=== PATIENT | male | born 1960 | race African-American/Black ===

== ENCOUNTER 2020-09-27 18:28 | Inpatient (IN) | payer MEDICARE ==
[~2020-09-27] VITALS: Ht 165.1 cm; Wt 71.4 kg
--- NOTE | ~2020-09-27 | HEMODYNAMI ---
PATIENT:ARMANDO ZAVALA MEDICAL RECORD: [id number] : 64 LOCATION:[place] [address] ADMISSION DATE: 09/27/20 Generatedon:113:02 Patient name: ARMANDO ZAVALA Patient #: [id number] SSN: : 1960 Date of study: 10/01/2020 Page: Of Hemodynamic Procedure Report Patient Data Patient Demographics Procedure consent was obtained First Name: ARMANDO Gender: Male Last Name: LUCAS : 1960 Patient #: [id number] Age: 59 year(s) Race: Black Additional ID: [id number] Contact details [address]: [address] [place] [address] State: [place] City: [place] Zip code: [address] Past Medical History Allergies: No known allergies Admission Admission Data Admission Date: 09/27/2020 Admission Time: 18:28 Room #: [facility] Height (in.): 65 BSA: 1.71 (m2) Height (cm.): 165.1 BMI: 23.63 (kg/m2) Weight (lbs.): 142 Weight (kg.): 64.41 Procedure Procedure Types Cath Procedure Peripheral Cath Diagnostic Procedure Miscellaneous Procedure Description Procedure Date Procedure Date: 10/01/2020 Procedure Start Time: 10:42 Procedure Staff Name Function Bart Echevarria MD Performing Physician Jada Glass RT Monitor Sharath Acosta RT Scrub Lisandra Zapien RN Nurse Kiran Alan CRNA Additional personnel Procedure Data Cath Procedure Fluoroscopy Diagnostic fluoroscopy Total fluoroscopy Time: time: 13.2 min 13.2 min Diagnostic fluoroscopy Total fluoroscopy dose: 167 dose: 167 mGy mGy Contrast Material Contrast Material Type Amount (ml) Isovue 300 80 Procedure Medications Medication Administration Route Dosage Lidocaine 1% added to field 20 Heparin Flush Bag added to field 2 bags (1000units/500ml NS) Radial Cocktail added to field 1 syringe (Verapamil 2mg/Nitro 400mcg/Heparin 1500units) Heparin Bolus I.V. 3000 units TPA 10 mg Heparin Bolus I.V. 3500 units Hemodynamics Rest BSA: 1.71 (m2) O2 Consumption: Estimated: 232.56 (ml/min) O2 Consumption indexed : Estimated:136 (ml/min/m) Pre Cath Intra NCS Post Cath Medications Time Medication Route Dose Verified Delivered Reason Notes E ffectiveness by by 10:25:20 Lidocaine 1% added to 20ml Bart Arriaga used for field vial Swathi ron MD, MD 10:25:32 Heparin Flush added to 2 bags Bart Arriaga Bag field Swathi Echevarria (1000units/500ml MD REBOLLAR NS) 10:53:29 Radial Cocktail added to 1 Bart Arriaga used for (Verapamil field syringe Swathi Echevarria procedure 2mg/Nitro MD REBOLLAR 400mcg/Heparin 1500units) 10:53:49 Heparin Bolus I.V. 3000 Bart Arriaga used for units Swathi ron MD, MD 11:25:15 TPA angiojet 10 mg Bart Arriaga used for Swathi ron MD, MD 11:33:21 Heparin Bolus I.V. 3500 Bart Arriaga used for units Swathi ron MD, MD Procedure Log Time Note 10:16:41 Patient Height : 65 inches 10:16:41 Patient Weight : 142 lbs 10:16:54 Kiran Alan CRNA present and monitoring patient for TIVA. 10:17:01 Lisandra Zapien RN sent for patient. Start room use. 10:17:16 Time tracking: Regular hours (M-F 7:00 - 5:00) 10:17:22 Patient received from CVICU to IR Alert and oriented. Tansferred to table in Supine position. 10:17:25 Signed procedure consent form obtained from patient. 10:17:26 Correct patient and procedure confirmed by team. 10:17:27 ECG and BP/O2 sat monitors applied to patient. 10:17:28 Full Disclosure recording started 10:17:29 - 10:17:31 Pre-procedure instructions explained to patient. 10:17:31 Pre-op teaching completed and patient verbalized understanding. 10:17:38 H&P Date Dictated: 10/01/2020 Within 30 days and on chart.. 10:17:39 - 10:17:56 SEE ANESTHESIA NOTE FOR PRE PROCEDURE ANESTHESIA 10:17:57 - 10:18:02 Alarms reviewed by RErik NErik 10:18:03 Sharps counted by scrub and verified by RAgustín 10:25:20 Lidocaine 1% 20ml vial added to field was administered by Bart diaz MD; used for procedure; Verbal order read back and verified. 10:25:32 Heparin Flush Bag (1000units/500ml NS) 2 bags added to field was administered by Bart Echevarria MD; ; Verbal order read back and verified. 10:34:47 Micropuncture VSI 4FR kit opened to sterile field. 10:34:49 CXI SUPPORT .035 135 CM STR catheter ([id number]) opened to sterile field. 10:34:50 BENTSON 145cm wire ([id number]) opened to sterile field. 10:34:51 ROADRUNNER .035 145 glide wire ([id number]) opened to sterile field. 10:34:58 Use device set IR Diagnostic 10:35:00 Tegaderm 4 x 4 (1626W) opened to sterile field. 10:35:01 Sterile Angiographic Pack opened to sterile field. 10:35:02 Bag Decanter () opened to sterile field. 10:35:18 - 10:35:25 Family unavailable. 10:35:27 Patient NPO since Midnight. 10:36:39 Patient allergic to No known allergies 10:37:11 Is the patient allergic to Iodine/contrast media? No. 10:37:17 Is patient on blood thinner?Yes 10:37:20 Patient diabetic? No. 10:37:49 ----Pre-sedation anethsthesia assessment.----SEE ANESTHESIA NOTES FOR MONITORING OF PATIENT DURING PROCEDURE 10:39:35 - 10:40:58 Right LEG area was prepped with chlora-prep and draped in sterile fashion 10:41:22 Physician arrived 10:41:22 --------ALL STOP TIME OUT------ 10:41:23 Final Timeout: patient, procedure, and site verified with staff and physician. All members of the team are in agreement. 10:42:00 Procedure started. 10:42:21 Local anesthetic to Pedal area with Lidocaine 1% by Bart Echevarria MD.INITIAL ACCESS ONLY 10:45:37 Arterial access obtained using ultrasound guidance. 10:46:08 1) 90+ Normal kidney functon but urine findings or structural abnormalities or genetic trait point to kidney disease. 10:46:15 Fire Safety Assessment: A--An alcohol-based skin anteseptic being used preoperatively., C--Open oxygen or nitrous oxide is being used. 10:47:34 SHEATH 6FR Slender (80-1060) opened to sterile field. 10:53:29 Radial Cocktail (Verapamil 2mg/Nitro 400mcg/Heparin 1500units) 1 syring e added to field was administered by Bart Echevarria MD; used for procedure; Verbal order read back and verified. 10:53:49 Heparin Bolus 3000 units I.V. was administered by Bart Echevarria MD; used for procedure; Verbal order read back and verified. 11:01:36 CHOICE PT Extra Support J 300cm guide wire ([id number]) opened to steril e field. 11:23:11 INFLATOR BasixTOUCH (IX3409) opened to sterile field. 11:23:49 Angiojet Solent Omni 6Fr Catheter opened to sterile field. 11:25:15 TPA 10 mg angiojet was administered by Bart Echevarria MD; used for procedure; Verbal order read back and verified. 11:25:51 Angiojet Power Pulse Delivery Kit opened to sterile field. 11:26:17 AMPLATZ Super stiff 3mm J 260cm wire ([id number]) opened to sterile field. 11:33:14 [place] 1 Small Atherectomy catheter (H1S) opened to sterile field. 11:33:21 Heparin Bolus 3500 units I.V. was administered by Bart Echevarria MD; used for procedure; Verbal order read back and verified. 11:49:07 Inflate balloon Inflation number: 1 A NANOCROSS ELITE 4X100 ([id number]) was prepped and advanced across the Undefined1 , then inflated . 11:51:32 Inflate balloon Inflation number: 2 A NANOCROSS ELITE 5MM X 80 X 150 ([id number]) was prepped and advanced across the Undefined1 , then inflated . 11:52:28 Inflate balloon Inflation number: 3 A NANOCROSS ELITE 6MM X 80 X 150 ([id number]) was prepped and advanced across the Undefined1 , then inflated . 11:53:29 EVERFLEX 6 x 150 Stent ([id number]) was deployed across Undefined1 . 12:31:22 Procedure ended.(Physican Out) 12:31:25 code blue at 1205, called at 1231 ---refer to code blue sheet 12:50:12 Fluoroscopy time 13.20 minutes. 12:50:20 Fluoroscopy dose: 167 mGy 12:50:20 Flurop Dose total: 167 12:50:27 Contrast amount:Isovue 300 80ml. 13:01:40 Procedure and supply charges have been captured, reviewed, submitted an d are correct. 13:01:46 Report given to CVICU. Intervention Summary Intervention Notes Time ActionType Lesion and Equipment Used Action# Pressure Duration Attributes 11:49:07 Inflate Undefined1 NANOCROSS ELITE 1 0 00:00 balloon 4X100 ([id number]) 11:51:32 Inflate Undefined1 NANOCROSS ELITE 2 0 00:00 balloon 2MM X 80 X 150 ([id number]) 11:52:28 Inflate Undefined1 NANOCROSS ELITE 3 0 00:00 balloon 2MM X 80 X 150 ([id number]) 11:53:29 Deploy self Undefined1 EVERFLEX 6 x 150 1 expanding Stent stent ([id number]) Device Usage Item Name Manufacture Quantity Catalog Number Hospital Part Curr ent Minimal Lot# / Charge Number Stock Stock Serial# Code Micropuncture VSI VASCULAR 1 [id number] 9540 29 5 VSI 4FR kit SOLUTIONS CXI SUPPORT .035 Cook Bolster 1 [id number] 493650 527223 0817 96 5 135 CM STR catheter ([id number]) BENTSON 145cm [employer] Medical 1 I57013 349392 2162 79 5 wire ([id number]) ROADRUNNER .035 Cook Bolster 1 L44255 376414 819031 6356 62 5 145 glide wire (Y57921) Tegaderm 4 x 4 3M 1 1626W 801463 267068 3781 48 5 (1626W) Sterile Cardinal 1 [id number] 276140 8301 71 5 Angiographic Health Pack Bag Decanter Microtek 1 2001S 208104 39033 9826 67 5 () Medical Inc. SHEATH 6FR Terumo 1 [id number] 539024 217774 0723 65 5 Slender (80-1060) CHOICE PT Extra [place] 1 [id number] 204844 970992 2995 65 5 Support J 300cm Scientific guide wire ([id number]) INFLATOR Merit 1 RD3299 192869 902387 9664 89 5 BasixTOCima NanoTech Medical (NP7123) Angiojet Solent [place] 1 755875-876 635311 878696 4963 81 1 Omni 6Fr Scientific Catheter Angiojet Power [place] 8 506640-1239 684634 737778 0283 93 5 Pulse Delivery Scientific Kit AMPLATZ Super [place] 1 [id number] 226857 0544 62 5 stiff 3mm J Scientific 260cm wire ([id number]) [place] 1 Medtronic 1 H1-S 798845 0183277 5333 49 5 Small Atherectomy catheter (H1S) NANOCROSS ELITE Medtronic 1 [id number] 773413 83863 9999 9998 1 4X100 ([id number]) NANOCROSS ELITE Medtronic 2 [id number] 890027 2380 81 1 2MM X 80 X 150 ([id number]) EVERFLEX 6 x 150 Medtronic 1 [id number] 314038 837394 6004 92 5 [id number] Stent [id number] ([id number]) Signature Audit [place] Stage Time Signature Unsigned Intra-Procedure 10/01/2020 Jada Glass 1:02:08 PM RT(R) [place] [id number] [place] [address]
--- NOTE | ~2020-09-27 | HEMODYNAMI ---
PATIENT:ARMANDO ZAVALA MEDICAL RECORD: [id number] : 64 LOCATION:[place] [address] ADMISSION DATE: 09/27/20 Generatedon:122:45 Patient name: ARMANDO ZAVALA Patient #: [id number] SSN: : 1960 Date of study: 09/27/2020 Page: Of Hemodynamic Procedure Report Patient Data Patient Demographics Procedure consent was obtained First Name: ARMANDO Gender: Male Last Name: LUCAS : 1960 Patient #: [id number] Age: 59 year(s) Race: Black Additional ID: [id number] Contact details Address: [address] [place] [address] State: [place] City: [place] Zip code: [address] Past Medical History Allergies: No known allergies Admission Admission Data Admission Date: 09/27/2020 Admission Time: 18:28 Room #: [facility] Height (in.): 65 BSA: 1.71 (m2) Height (cm.): 165.1 BMI: 23.63 (kg/m2) Weight (lbs.): 142 Weight (kg.): 64.41 Procedure Procedure Types Cath Procedure Peripheral Cath Diagnostic Procedure Canoe Maker Peripheral Procedures Abd/Extremity Extremities Bilat Lower Extremity Procedure Description Procedure Date Procedure Date: 09/27/2020 Procedure Start Time: 20:58 Procedure Staff Name Function Milton Burnette MD Performing Physician Jada Glass RT Teaching Music Lessons Rebecca Ferguson RN Nurse Sharath Acosta RT Scrub Procedure Data Cath Procedure Fluoroscopy Diagnostic fluoroscopy Total fluoroscopy Time: time: 29.7 min 29.7 min Diagnostic fluoroscopy Total fluoroscopy dose: 184 dose: 184 mGy mGy Contrast Material Contrast Material Type Amount (ml) Isovue 300 165 Diagnostic catheters Device Type Used For End Catheter Placement Merit ULTRA BOLUS FLUSH 5Fr 65CM catheter ([id number]) Procedure Medications Medication Administration Route Dosage Versed I.V. 1 mg Lidocaine 1% added to field 20 Heparin Flush Bag added to field 3 bags (1000units/500ml NS) Fentanyl I.V. 25 mcg Fentanyl I.V. 25 mcg Hemodynamics Rest BSA: 1.71 (m2) O2 Consumption: Estimated: 207.74 (ml/min) O2 Consumption indexed : Estimated:121.49 (ml/min/m) Heart Rate: 79 (bpm) Snapshots Pre Cath Intra NCS Post Cath Vital Signs Time Heart Resp SPO2 etCO2 NIBP (mmHg) Rhythm Pain Sedation Rate (ipm) (%) (mmHg) Status Level (bpm) 20:46:31 80 15 100 21.8 138/102(118) NSR 0 (11) 10(A) , No pain 20:50:43 75 19 100 24.9 130/98(111) NSR 0 (11) 10(A) , No pain 20:54:45 76 21 100 24.9 135/101(114) NSR 0 (11) 10(A) , No pain 20:58:51 72 20 100 21.1 136/93(108) NSR 0 (11) 10(A) , No pain 21:03:01 73 23 100 22.6 123/85(104) NSR 0 (11) 8(A) , No pain 21:07:02 73 17 100 26.4 127/91(107) NSR 0 (11) 8(A) , No pain 21:11:04 82 19 100 0 135/107(125) NSR 0 (11) 8(A) , No pain 21:15:07 79 18 100 15.1 136/96(117) NSR 0 (11) 8(A) , No pain 21:19:13 73 16 100 27.2 129/93(105) NSR 0 (11) 8(A) , No pain 21:23:17 75 17 100 25.6 118/89(101) NSR 0 (11) 8(A) , No pain 21:27:19 72 16 100 30.2 117/82(97) NSR 0 (11) 8(A) , No pain 21:31:20 69 15 100 27.9 121/83(94) NSR 0 (11) 8(A) , No pain 21:35:24 73 15 100 26.4 128/83(104) NSR 0 (11) 8(A) , No pain 21:39:30 68 15 100 27.2 124/84(101) NSR 0 (11) 8(A) , No pain 21:43:36 67 15 100 27.2 123/82(99) NSR 0 (11) 8(A) , No pain 21:47:44 67 16 100 27.2 122/71(89) NSR 0 (11) 8(A) , No pain 21:51:47 66 16 100 27.2 119/84(99) NSR 0 (11) 8(A) , No pain 21:55:51 67 15 100 27.2 120/79(97) NSR 0 (11) 8(A) , No pain 21:59:49 75 20 100 24.1 127/94(111) NSR 0 (11) 8(A) , No pain 22:03:50 71 16 27.2 129/96(109) NSR 0 (11) 8(A) , No pain 22:07:52 72 14 100 27.2 129/99(112) NSR 0 (11) 8(A) , No pain 22:11:54 68 12 100 28.7 127/97(111) NSR 0 (11) 8(A) , No pain 22:15:53 74 17 100 26.4 132/97(115) NSR 0 (11) 8(A) , No pain 22:19:57 74 13 30.9 143/102(114) NSR 0 (11) 8(A) , No pain 22:24:05 73 11 100 30.2 147/104(120) NSR 0 (11) 8(A) , No pain 22:28:15 78 15 96 26.4 138/104(123) NSR 0 (11) 8(A) , No pain 22:32:21 78 16 100 24.9 134/104(115) NSR 0 (11) 8(A) , No pain 22:36:24 78 13 100 23.4 144/113(126) NSR 0 (11) 8(A) , No pain 22:40:32 74 15 100 23.4 147/103(118) NSR 0 (11) 8(A) , No pain 22:44:32 0 No Cuff NSR 0 (11) 8(A) , No pain Medications Time Medication Route Dose Verified Delivered Reason Notes Effe ctiveness by by 20:58:33 Versed I.V. 1 mg Milton Fernandez for Burnette Marty GOFF sedation 20:59:06 Lidocaine 1% added 20ml Milton Rose for local to vial Burnette Burnette anesthetic field MD REBOLLAR 20:59:22 Heparin Flush added 3 Milton Rose used for Bag to bags Burnette Burnette procedure (1000units/500ml field MD REBOLLAR NS) 22:02:02 Fentanyl I.V. 25 Milton Fernandez pain mcg Vasile Ferguson RN, MD 22:10:32 Fentanyl I.V. 25 Milton Fernandez pain mcg Vasile Ferguson RN, MD Procedure Log Time Note 20:13:51 Patient Height : 65 inches 20:13:55 Patient Weight : 142 lbs 20:14:20 Use device set IR Diagnostic 20:15:17 SHEATH 5FR [place] (HEU638) opened to sterile field. 20:15:19 TUBING Contrast Injection High Pressure ([id number]) opened to sterile field. 20:15:19 PERCUTANEOUS ENTRY 19GA needle opened to sterile field. 20:15:20 JACOBS 260 wire ([id number]) opened to sterile field. 20:15:23 Tegaderm 4 x 4 (1626W) opened to sterile field. 20:15:23 Sterile Angiographic Pack opened to sterile field. 20:15:24 Bag Decanter (2001S) opened to sterile field. 20:15:28 ACIST Manifold (87470) opened to sterile field. 20:15:28 ACIST Hand Control (58124) opened to sterile field. 20:15:29 ACIST Syringe (89954) opened to sterile field. 20:15:50 A [employer] ULTRA BOLUS FLUSH 5Fr 65CM catheter ([id number]) was advanced over the wire and used for . 20:15:53 - 20:44:56 Time tracking: Regular hours (M-F 7:00 - 5:00) 20:45:03 Plan of Care:Hemodynamics will remain stable., Cardiac rhythm will remain stable., Comfort level will be maintained., Respiratory function will remain adequate., Patient/ family verbilizes understanding of procedure., Procedure tolerated without complication., Recovers from procedure without complications.. 20:45:09 Patient received from CVICU to IR Alert and oriented. Tansferred to table in Supine position. 20:45:13 Signed procedure consent form obtained from patient. 20:45:19 H&P Date Dictated: 09/27/2020 Within 30 days and on chart.. 20:45:26 ECG and BP/O2 sat monitors applied to patient. 20:45:27 Vital chart was started 20:45:28 Baseline sample Acquired. 20:45:31 Full Disclosure recording started 20:45:33 - 20:45:34 Pre-procedure instructions explained to patient. 20:45:35 Pre-op teaching completed and patient verbalized understanding. 20:45:38 Family unavailable. 20:45:55 Patient NPO since Dinner. 20:46:04 Patient allergic to No known allergies 20:46:07 Is the patient allergic to Iodine/contrast media? No. 20:46:10 Is patient on blood thinner?Yes 20:46:17 Patient diabetic? No. 20:46:21 - 20:46:22 ----Pre-sedation anethsthesia assessment.---- 20:46:25 Previous problem with sedation/anesthesia? No ? 20:46:28 Snore? No 20:46:30 Sleep apnea? No 20:46:31 Deviated septum? No 20:46:35 Opens mouth fully? Yes 20:46:37 Sticks out tongue? Yes 20:46:43 Airway obstruction? Yes copd, heart disease- pacemaker 20:46:49 Dentures? No ? 20:47:18 Pre procedure: right dorsailis pedis pulse 0-Absent 20:47:29 Pre procedure: left dorsailis pedis pulse Doppler 20:47:41 Pre procedure: right posterior tibial pulse 0-Absent 20:47:46 Pre procedure: left posterior tibial pulse Doppler 20:47:54 Left groin area was prepped with chlora-prep and draped in sterile fashion 20:47:56 Alarms reviewed by Ly Ruiz 20:47:57 - 20:48:09 2) 60-89 Mildly reduced kidney function, and other findings (as for stage 1) point to kidney disease. 20:48:16 Fire Safety Assessment: A--An alcohol-based skin anteseptic being used preoperatively., C--Open oxygen or nitrous oxide is being used. 20:48:23 - 20:57:51 Physician arrived 20:57:51 --------ALL STOP TIME OUT------ 20:57:52 Final Timeout: patient, procedure, and site verified with staff and physician. All members of the team are in agreement. 20:58:04 Procedure started. 20:58:08 Local anesthetic to left femerol artery with Lidocaine 1% by Milton Burnette MD.INITIAL ACCESS ONLY 20:58:33 Versed 1 mg I.V. was administered by Rebecca Ferguson RN; for sedation; Verbal order read back and verified. 20:59:06 Lidocaine 1% 20ml vial added to field was administered by Milton Burnette MD; for local anesthetic; Verbal order read back and verified. 20:59:22 Heparin Flush Bag (1000units/500ml NS) 3 bags added to field was administered by Milton Burnette MD; used for procedure; Verbal order read back and verified. 21:09:30 TORQUE DEVICE PLASTIC .038 ( TD01) opened to sterile field. 21:10:01 GLIDE WIRE ANGLE 260cm ([id number]) opened to sterile field. 21:10:03 CXI SUPPORT .035 135 CM STR catheter ([id number]) opened to sterile field. 21:11:25 Baseline sample Acquired. 21:11:55 Abdominal angiogram w/ runoff was performed. 21:24:29 SHEATH 7FR Destination (RSR04) opened to sterile field. 21:34:05 GLIDE WIRE Super Stiff Angled 260cm ([id number]) opened to sterile field. 21:50:15 Inflate balloon Inflation number: 1 A Evercross 4 x 100 x 135 Balloon ([id number]) was prepped and advanced across the Undefined1 , then inflated . 21:57:00 VIABAHN 6 X 10 X 120 stent ([id number]) was deployed across Undefined1 . 21:57:45 VIABAHN 6 X 15 X 120 stent ([id number]) was deployed across Undefined1 . 21:58:27 Inflate balloon Inflation number: 2 A Evercross 6 x 100 x 135 Balloon ([id number]) was prepped and advanced across the Undefined1 , then inflated . 22:02:02 Fentanyl 25 mcg I.V. was administered by Rebecca Ferguson RN; pain; Verbal order read back and verified. 22:07:26 VIABAHN 6 X 5 X 120 stent ([id number]) was deployed across Undefined1 . 22:10:32 Fentanyl 25 mcg I.V. was administered by Rebecca Ferguson RN; pain; Verbal order read back and verified. 22:19:32 INFUSION CATHETER 30cm Marcia ([id number]) opened to sterile field . 22:24:58 Procedure ended.(Physican Out) 22:25:40 Fluoroscopy time 29.70 minutes. 22:25:45 Flurop Dose total: 184 22:25:45 Fluoroscopy dose: 184 mGy 22:26:01 Contrast amount:Isovue 300 165ml. 22:26:03 Procedure and supply charges have been captured, reviewed, submitted an d are correct. 22:29:02 Report given to CVICU. 22:45:51 Vital chart was stopped Intervention Summary Intervention Notes Time ActionType Lesion and Equipment Used Action# Pressure Duration Attributes 21:50:15 Inflate Undefined1 Evercross 4 x 1 0 00:00 balloon 100 x 135 Balloon ([id number]) 21:57:00 Deploy self Undefined1 VIABAHN 6 X 10 1 expanding X 120 stent stent ([id number]) 21:57:45 Deploy self Undefined1 VIABAHN 6 X 15 1 expanding X 120 stent stent ([id number]) 21:58:27 Inflate Undefined1 Evercross 6 x 2 0 00:00 balloon 100 x 135 Balloon ([id number]) 22:07:26 Deploy self Undefined1 VIABAHN 6 X 5 X 1 expanding 120 stent stent ([id number]) Device Usage Item Name Manufacture Quantity Catalog Number Hospital Part Current M inimal Lot# / Charge Number Stock Stock Serial# Code SHEATH 5FR Terumo 1 [id number] 486678 502951 355104 5 [place] (NHX609) TUBING Contrast Merit 1 [id number] 564678 948563 833645 5 Injection High Medical Pressure ([id number]) PERCUTANEOUS [employer] 1 I83147 937078 300438 5 ENTRY 19GA needle JACOBS 260 wire [employer] 1 T79191 263282 516741 268773 5 (N58104) Tegaderm 4 x 4 3M 1 1626W 114914 388594 189980 5 (1626W) Sterile Cardinal 1 [id number] 270883 667151 5 Angiographic Health Pack Bag Decanter Microtek 1 2001S 307216 28697 711999 5 (2001S) Medical Inc. ACIST Manifold Acist 1 57530 999769 120611 683968 5 (20179) Medical Systems Inc ACIST Hand Acist 1 68807 930550 187561 225582 5 Control (89354) [employer] ACIST Syringe Acist 1 77590 587949 838862 993088 2 0 (53613) [employer] Merit ULTRA Merit 1 [id number] 380572 298268 5 BOLUS FLUSH 5Fr Medical 65CM catheter ([id number]) TORQUE DEVICE [place] 1 TD01 435437 171085 133370 5 PLASTIC .038 ( Scientific TD01) GLIDE WIRE Terumo 1 PD8289 231877 403455 885850 5 ANGLE 260cm (WR1333) CXI SUPPORT [employer] Medical 1 A87773 412597 770308 405824 5 [id number] .035 135 CM STR catheter (C75422) SHEATH 7FR Terumo 1 RSR04 312954 447720 979423 5 Destination (RSR04) GLIDE WIRE Terumo 1 BD1148 124785 817079 387219 5 Super Stiff Angled 260cm (ZW5847) Evercross 4 x Medtronic 1 [id number] 368581 282912 269801 5 100 x 135 Balloon ([id number]) VIABAHN 6 X 10 [employer] 1 [id number] 965125 606005 155154 5 [id number] X 120 stent ([id number]) VIABAHN 6 X 15 [employer] [place] 1 [id number] 585707 137405 018755 5 [id number] X 120 stent ([id number]) Evercross 6 x Medtronic 1 [id number] 829697 357434 439312 5 100 x 135 Balloon ([id number]) VIABAHN 6 X 5 X [employer] [place] 1 [id number] 270638 047806 604973 5 [id number] 120 stent ([id number]) INFUSION Medtronic 1 84809-43 024984 570552 5 CATHETER 30cm Marcia ([id number]) Signature Audit [place] Stage Time Signature Unsigned Intra-Procedure 09/27/2020 Jada Glass 10:45:47 PM RT(R) [facility] [address] [place] [address]
--- NOTE | ~2020-09-27 | HEMODYNAMI ---
PATIENT:ARMANDO ZAVALA MEDICAL RECORD: [id number] : 64 LOCATION:[place] [address] ADMISSION DATE: 09/27/20 Generatedon:112:07 Patient name: ARMANDO ZAVALA Patient #: [id number] SSN: : 1960 Date of study: 09/28/2020 Page: Of Hemodynamic Procedure Report Patient Data Patient Demographics Procedure consent was obtained First Name: ARMANDO Gender: Male Last Name: LUCAS : 1960 Patient #: [id number] Age: 59 year(s) Race: Black Additional ID: [id number] Contact details Address: [address] [place] [address] State: [place] City: [place] Zip code: [address] Past Medical History Allergies: No known allergies Admission Admission Data Admission Date: 09/27/2020 Admission Time: 18:28 Room #: [facility] Height (in.): 65 BSA: 1.71 (m2) Height (cm.): 165.1 BMI: 23.63 (kg/m2) Weight (lbs.): 142 Weight (kg.): 64.41 Procedure Procedure Types Cath Procedure Peripheral Cath Diagnostic Procedure Abd/Extremity Extremities Right Lower Ext Arterio Procedure Description Procedure Date Procedure Date: 09/28/2020 Procedure Start Time: 11:27 Procedure Staff Name Function Milton Burnette MD Performing Physician Jada Glass RT Human Resource Officer Lisandra Zapien RN Nurse Sharath Acosta RT Scrub Procedure Data Cath Procedure Fluoroscopy Diagnostic fluoroscopy Total fluoroscopy Time: 2.3 time: 2.3 min min Diagnostic fluoroscopy Total fluoroscopy dose: 102 dose: 102 mGy mGy Contrast Material Contrast Material Type Amount (ml) Isovue 300 65 Procedure Medications Medication Administration Route Dosage Fentanyl I.V. 50 mcg Versed I.V. 1 mg Lidocaine 1% added to field 20 Heparin Flush Bag added to field 2 bags (1000units/500ml NS) Fentanyl I.V. 50 mcg Versed I.V. 1 mg Hemodynamics Rest BSA: 1.71 (m2) O2 Consumption: Estimated: 207.16 (ml/min) O2 Consumption indexed : Estimated:121.15 (ml/min/m) Heart Rate: 78 (bpm) Snapshots Pre Cath Intra NCS Post Cath Vital Signs Time Heart Resp SPO2 etCO2 NIBP (mmHg) Rhythm Pain Sedation Rate (ipm) (%) (mmHg) Status Level (bpm) 11:09:33 70 19 100 19.6 139/89(111) NSR 0 (11) 10(A) , No pain 11:13:39 72 20 22.6 142/97(115) NSR 0 (11) 10(A) , No pain 11:17:46 74 21 30.2 136/95(111) NSR 0 (11) 10(A) , No pain 11:21:52 73 19 27.9 139/90(113) NSR 0 (11) 10(A) , No pain 11:25:58 74 21 15.8 137/107(126) NSR 0 (11) 10(A) , No pain 11:30:06 76 26 21.9 135/90(119) NSR 0 (11) 8(A) , No pain 11:34:11 77 14 13.6 140/96(116) NSR 0 (11) 8(A) , No pain 11:38:17 74 13 15.8 138/96(114) NSR 0 (11) 8(A) , No pain 11:42:22 73 13 100 15.8 139/92(111) NSR 0 (11) 8(A) , No pain 11:46:30 71 12 100 22.6 130/90(110) NSR 0 (11) 8(A) , No pain 11:50:35 70 12 24.2 129/84(106) NSR 0 (11) 8(A) , No pain 11:54:39 69 13 23.4 130/89(112) NSR 0 (11) 8(A) , No pain 11:58:41 80 18 24.2 137/97(116) NSR 0 (11) 8(A) , No pain 12:02:45 73 13 18.9 142/98(114) NSR 0 (11) 8(A) , No pain Medications Time Medication Route Dose Verified Delivered Reason Notes Effec tiveness by by 11:29:03 Fentanyl I.V. 50 Milton Fry for mcg Burnette Curry sedation RN 11:29:17 Versed I.V. 1 mg Milton Fry for Burnette Curry sedation RN 11:29:36 Lidocaine 1% added 20ml Milton Rose used for to vial Burnette Burnette procedure field MD REBOLLAR 11:29:48 Heparin Flush added 2 Milton Rose used for Bag to bags Burnette Burnette procedure (1000units/500ml field MD REBOLLAR NS) 11:58:12 Fentanyl I.V. 50 Milton Fry for mcg Burnette Curry sedation RN 11:58:19 Versed I.V. 1 mg Milton Fry for Burnette Curry sedation isobutylene operator chief Log Time Note 10:31:08 Patient Height : 65 inches 10:31:08 Patient Weight : 142 lbs 11:07:51 Time tracking: Call back (After hours or weekends) 11:08:06 Plan of Care:Hemodynamics will remain stable., Cardiac rhythm will remain stable., Comfort level will be maintained., Respiratory function will remain adequate., Patient/ family verbilizes understanding of procedure., Procedure tolerated without complication., Recovers from procedure without complications.. 11:08:13 Patient received from CVICU to IR Alert and oriented. Tansferred to table in Supine position. 11:08:18 Signed procedure consent form obtained from patient. 11:08:20 ECG and BP/O2 sat monitors applied to patient. 11:08:21 Vital chart was started 11:08:22 Baseline sample Acquired. 11:08:27 Full Disclosure recording started 11:08:28 - 11:08:34 H&P Date Dictated: 09/28/2020 Within 30 days and on chart.. 11:08:37 Pre-procedure instructions explained to patient. 11:08:38 Pre-op teaching completed and patient verbalized understanding. 11:08:40 Family unavailable. 11:08:42 Patient NPO since Midnight. 11:08:53 Patient allergic to No known allergies 11:09:05 Is the patient allergic to Iodine/contrast media? No. 11:10:27 Patient diabetic? No. 11:10:30 - 11:10:32 ----Pre-sedation anethsthesia assessment.---- 11:10:36 Previous problem with sedation/anesthesia? No ? 11:10:43 Snore? No 11:10:50 Sleep apnea? No 11:10:52 Deviated septum? No 11:10:56 Opens mouth fully? Yes 11:11:00 Sticks out tongue? Yes 11:11:12 Airway obstruction? Yes copd, pacemaker for A-FIB 11:11:37 - 11:11:48 Pre procedure: right posterior tibial pulse Doppler 11:11:54 Pre procedure: left dorsailis pedis pulse Doppler 11:11:57 Pre procedure: right dorsailis pedis pulse 0-Absent 11:12:01 Pre procedure: left posterior tibial pulse Doppler 11:12:09 Left groin area was prepped with betadine and draped in sterile fashion 11:12:11 Alarms reviewed by Ly Ruiz 11:12:20 2) 60-89 Mildly reduced kidney function, and other findings (as for stage 1) point to kidney disease. 11:12:26 Fire Safety Assessment: A--An alcohol-based skin anteseptic being used preoperatively., C--Open oxygen or nitrous oxide is being used. 11:12:37 Use device set IR Diagnostic 11:12:39 Tegaderm 4 x 4 (1626W) opened to sterile field. 11:12:40 Sterile Angiographic Pack opened to sterile field. 11:12:41 Bag Decanter (2002) opened to sterile field. 11:12:55 - 11::47 Physician arrived 11::48 --------ALL STOP TIME OUT------ 11::48 Final Timeout: patient, procedure, and site verified with staff and physician. All members of the team are in agreement. 11:27:11 Procedure started. 11:29:03 Fentanyl 50 mcg I.V. was administered by Lisandra Zapien RN; for sedation; Verbal order read back and verified. 11:29:17 Versed 1 mg I.V. was administered by Lisandra Zapien RN; for sedation; Verbal order read back and verified. 11:29:36 Lidocaine 1% 20ml vial added to field was administered by Mitlon Burnette MD; used for procedure; Verbal order read back and verified. 11:29:48 Heparin Flush Bag (1000units/500ml NS) 2 bags added to field was administered by Milton Burnette MD; used for procedure; Verbal order read back and verified. 11:35:35 TORQUE DEVICE PLASTIC .038 ( TD01) opened to sterile field. 11:35:36 GLIDE WIRE ANGLE 260cm (LG9798) opened to sterile field. 11:35:37 CXI SUPPORT .035 135 CM STR catheter ([id number]) opened to sterile field. 11:39:38 Angiography was performed. 11:45:47 ANGIOSEAL-VIP PLUS 6 FR opened to sterile field. 11:51:52 Procedure ended.(Physican Out) 11:52:02 Fluoroscopy time 02.30 minutes. 11:52:18 Fluoroscopy dose: 102 mGy 11:52:18 Flurop Dose total: 102 11:52:23 Contrast amount:Isovue 300 65ml. 11:58:12 Fentanyl 50 mcg I.V. was administered by Lisandra Zapien RN; for sedation; Verbal order read back and verified. 11:58:19 Versed 1 mg I.V. was administered by Lisandra Zapien RN; for sedation; Verbal order read back and verified. 12:06:33 Report given to CVICU. 12:06:40 Patient transfered to CVICU with Bed. 12:07:05 Vital chart was stopped Device Usage Item Name Manufacture Quantity Catalog Hospital Part Current Minima l Lot# / Number Charge Number Stock Stock Serial# Code Tegaderm 4 x 3M 1 1626W 377275 830578 872974 5 4 (1626W) Sterile Cardinal 1 [id number] 217630 031837 5 Angiographic Health Pack Bag Decanter Microtek 1 2001S 637825 14774 408361 5 (2001S) [employer] TORQUE DEVICE [place] 1 TD01 633610 231494 941705 5 PLASTIC .038 Scientific ( TD01) GLIDE WIRE Terumo 1 [id number] 707145 482860 917015 5 ANGLE 260cm (BX9138) CXI SUPPORT Cook Medical 1 X95603 138860 899506 822497 5 [id number] .035 135 CM STR catheter (N61458) ANGIOSEAL-[facility] [place] 1 110203 508436 223702 748081 5 PLUS 6 FR Signature Audit [place] Stage Time Signature Unsigned Intra-Procedure 09/28/2020 Jada Glass 12:07:01 PM RT(R) [facility] [address] [place] [address]
--- NOTE | 2020-09-27 18:05 | NUR ---
received per ambulance to room cv03. patient transfered self to bed. awake and alert skin warm and dry. both lower legs cool to touch. doppler pulse posterior tibia bilaterally. right foot no doppler pedal pulse. reviewed medication list with patient. VALUABLES LOCKED IN SAFE. DR. DAVIS AND IR NOTIFIED OF PATIENT ADMIT. HEPARIN GTT AT 1000UNITS HOUR INFUSING.
[2020-09-27 18:10] VITALS: BP 140/92
[2020-09-27] MEDS ORDERED: PROTONIX40 MG PO (18:37)
[2020-09-27] MEDS ORDERED: ISOSORBIDE MONO60 M1 PO (18:38)
[2020-09-27] MEDS ORDERED: COREG25 MG PO (18:38)
[2020-09-27] MEDS ORDERED: ALBUTEROL SULF8.5 GM (18:39)
[2020-09-27] MEDS ORDERED: BAYER CHEWABLE81 MG PO (18:39)
[2020-09-27] MEDS ORDERED: K-TAB10 MEQ PO (18:40)
[2020-09-27] MEDS ORDERED: REMERON15 MG PO (18:40)
[2020-09-27] MEDS ORDERED: ALDACTONE25 MG PO (18:41)
[2020-09-27] MEDS ORDERED: ZOCOR40 MG PO (18:41)
[2020-09-27] MEDS ORDERED: VITAMIN D 22000 UNIT PO (18:42)
[2020-09-27] MEDS ORDERED: SYMBICORT 16010.2 GM INH (18:42)
[2020-09-27 19:02] LABS: BILIRUBIN NEGATIVE (NEGATIVE); KETONE NEGATIVE (NEGATIVE); NITRITE NEGATIVE (NEGATIVE); UROBILINOGEN NORMAL mg/dL (< 2)
[2020-09-27 19:11] LABS: HEMATOCRIT 37.1 % (42.0-54.0); HEMOGLOBIN 11.6 g/dL (13.5-17.5); MCH 24.4 pg (26.0-34.0); MCHC 31.2 g/dL (31.0-37.0); MCV 78.4 fL (80.0-100.0); MEAN PLATELET VOLUME 8.8 fL (7.4-10.4); RBC 4.74 10x6/uL (4.20-6.10); RDW 20.9 % (11.5-14.5); WBC 5.4 10x3/uL (4.8-10.8)
[2020-09-27 19:20] LABS: ANION GAP 14.7 mmol/L (8-16); CARBON DIOXIDE 25.9 mmol/L (21.0-32.0); CREATININE - SERUM 1.1 mg/dL (0.6-1.3); POTASSIUM - SERUM 3.6 mmol/L (3.5-5.1)
[2020-09-27 19:26] LABS: ALBUMIN 3.3 g/dL (3.4-5.0); BILIRUBIN - TOTAL 0.63 mg/dL (0.2-1.3); PROTEIN - SERUM 6.8 g/dL (6.4-8.2)
--- NOTE | 2020-09-27 21:27 | NUR ---
LE FROM 190, PT FROM OSH, PER RN REPORT PT ARRIVED TO UNIT AT APPROX 1820, ADMITTED FOR OCCLUSION TO RLE, BLE COOL TO TOUCH, LEFT PEDAL PULSE THREADY PER DOPPLER, UNABLE TO DOPPLER RIGHT PEDAL PULSE, DR DAVIS PAGED PER DAYSHIFT RN AND RETURNED CALL AT SHIFT CHANGE, RN REPORTED NO RIGHT PEDAL PULSE DOPPLERED. DR SANDY AND DR GARCIA AWARE OF PT ARRIVAL PER REPORT. PT ARRIVED FROM OSH WITH HEPARIN GTT, AT SHIFT CHANGE PT HEPARIN GTT INFUSING TO 18G IN RIGHT WRIST, LAB AT BEDSIDE OBTAINING BASELINE PTT AND OTHER ORDERED LABS. PT ON ROOM AIR, VITAL SIGNS STABLE, AAOX4. VENOUS ULCER TO RLE OUTER LEG ABOVE ANKLE, OPEN AREA APPOX 1 INCH LATERAL AND 1/2 INCH ACCROSS, PT REPORTS WOUND HAS BEEN THERE SINCE HOSPITALIZATION IN [place] WITH COVID IN JUN 2019. @192: DR GARCIA AT BEDSIDE ASSESSING PT, DISCUSSED PROCEDURE WITH PT, PT AGREED TO SIGN CONSENT, ORDER OBTAINED TO PLACE GAMEZ CATH. GAMEZ CATH ATTEMPTED X2, UNSUCCESSFUL, RESISTANCE WITH ADVANCEMENT, PT REPORTS UNABLE TO VOID WHILE LAYING, HESITANCE AND START AND STOP OF URINE STREAM. @1944, LAB REPORTED CRITICAL PTT OF 174.7, HEP GTT STOPPED, NURSE FROM I.R. CALLED AT 1999, DISCUSSED DIFFICULTY WITH GAMEZ PLACEMENT, AND CRITICAL PTT WITH HEPARIN GTT STOPPED, NURSE INSRTUCTED TO KEEP HEPARIN GTT OFF. @2009, EXPLOSIVE ORDNANCE DISPOSAL MANAGER Julia HUMPHREYS PAGED TO REPORT UNABLE TO PLACE GAMEZ AND PT PAIN WITH ATTEMPTS WELL BPH SYMPTOMS, EXPLOSIVE ORDNANCE DISPOSAL MANAGER INSTRUCTED TO ATTEMPT COUDE GAMEZ CATH AND ORDER OBTAINED FOR 2MG MORPHINE IVP ONE TIME DOSE AND 4MG ZOFRAN IVP ONE TIME DOSE WITH NEXT ATTEMPT. AT 2019 14F 5CC COUDE CATH PLACED USING STERILE PROCEDURE. PT TAKEN TO I.R. WITH 2 NURSES AT 2037. PT CALLED NEXT OF KIN PRIOR TO LEAVING UNIT TO UPDATE ON PROCEDURE BEING PREFORMED.
--- NOTE | 2020-09-27 22:50 | NUR ---
PT BACK FROM I.R. DROWSY BUT EASILY AROUSABLE AND ORIENTED X4. RIGHT PEDAL AND POSTERIOR TIB ABSENT ON RLE, RIGHT FEMORAL PULSE PALPABLE, LEFT PEDAL PULSE PALPATED AND VERIFIED WITH DOPPLER, LEFT GROIN WITH DRESSING X2, INNER GROIN WITH GAUZE AND TEGRADERM C/D/I AT THIS TIME, BELOW LEFT GROIN DRESSING WITH ALTEPLASE TO BLUE PORT AT 1 MG/HR AND HEPARIN TO RED PORT AT SET RATE OF 500 UNITS/HR. NS @50ML/HR TO 18G PIV. INSTRUCTED TO KEEP PT HOB BELOW 10 DEGREES, OKAY TO GIVE SIPS OF CLEAR LIQUID UNTIL MIDNIGHT. DILAUDID SALES COMMISSIONS ANALYST ORDERED, PT DENIES PAIN AT THIS TIME, APPEARS RESTING COMFORTABLY. 02 VIA NC @2L, CALL LIGHT GIVEN AND PT EDUCATED ON USE OF CALL LIGHT. PT REMINDED TO KEEP LEG STRAIGHT TONIGHT.
[2020-09-27 23:10] VITALS: BP 153/97
[2020-09-27 23:40] VITALS: BP 148/103
[2020-09-27 23:40] LABS: BASOPHILS 1.5 % (0-2); EOSINOPHILS 1.9 % (0-7); HEMATOCRIT 41.7 % (42.0-54.0); HEMOGLOBIN 13.1 g/dL (13.5-17.5); LYMPHOCYTES 29.8 % (15-50); MCH 24.6 pg (26.0-34.0); MCHC 31.3 g/dL (31.0-37.0); MCV 78.4 fL (80.0-100.0); MEAN PLATELET VOLUME 8.3 fL (7.4-10.4); MONOCYTES 15.2 % (2-11); NEUTROPHILS 51.6 % (40-80); PLATELET COUNT 213 10x3/uL (130-400); RBC 5.31 10x6/uL (4.20-6.10); RDW 21.2 % (11.5-14.5); WBC 5.5 10x3/uL (4.8-10.8)
[2020-09-27 23:55] LABS: INR 1.3 (0.85-1.17)
[2020-09-27 23:56] LABS: APTT 41.3 SECONDS (22.8-39.4)
[2020-09-28] VITALS (29 sets, daily range): BP systolic 114–154; BP diastolic 77–94; BMI 23.6
--- NOTE | 2020-09-28 03:26 | NUR ---
PT REMAINS RESTING IN BED WITH EYES CLOSED, DENIES PAIN. BLE REMAIN COOL TO TOUCH, LEFT PEDAL PULSE 3+ PALPATION, REMAIN UNABLE TO DOPPLER RIGHT PEDAL PULSE OR POST TIB. DRESSINGS TO LEFT GROIN REMAIN DRY AND INTACT, SITE SOFT, NO S/S OF COMPLICATION. GAMEZ DRAINING CLEAR YELLOW URINE. VITAL SIGNS STABLE. WILL CONT TO ASSESS.
[2020-09-28 05:31] LABS: HEMATOCRIT 36.3 % (42.0-54.0); HEMOGLOBIN 11.3 g/dL (13.5-17.5); MCH 24.5 pg (26.0-34.0); MCHC 31.1 g/dL (31.0-37.0); MCV 78.9 fL (80.0-100.0); MEAN PLATELET VOLUME 8.9 fL (7.4-10.4); RBC 4.61 10x6/uL (4.20-6.10); RDW 21.4 % (11.5-14.5)
[2020-09-28 05:42] LABS: INR 1.39 (0.85-1.17); PROTIME 15.8 SECONDS (11.6-15.0)
[2020-09-28 05:43] LABS: APTT 40.7 SECONDS (22.8-39.4)
[2020-09-28 06:04] LABS: ALBUMIN 3.2 g/dL (3.4-5.0); ALKALINE PHOSPHATASE 111 U/L (30-120); ALT (SGPT) 43 U/L (10-68); BILIRUBIN - TOTAL 0.57 mg/dL (0.2-1.3); CALC OSMOLALITY 276 mosm/kg (275-300); CALCIUM 7.8 mg/dL (8.5-10.1); CARBON DIOXIDE 23.8 mmol/L (21.0-32.0); CHLORIDE - SERUM 102 mmol/L (98-107); GLUCOSE 95 mg/dL (74-106); MAGNESIUM - SERUM 1.1 mg/dL (1.8-2.4); PHOSPHOROUS 3.5 mg/dL (2.5-4.9); POTASSIUM - SERUM 3.6 mmol/L (3.5-5.1); PROTEIN - SERUM 6.6 g/dL (6.4-8.2); SODIUM 137 mmol/L (136-145); UREA NITROGEN 20 mg/dL (7-18); eGFR NON AFRICAN AMERICAN 82 mL/min (90-120)
--- NOTE | 2020-09-28 08:14 | NUR ---
LEFT FEMEROL SHEATH DRESSING DRY AND INTACT. LEFT PEDAL PULSE WITH DOPPLER, NO DOPPLER PULSE RIGHT FOOT. BOTH FEET COOL TO TOUCH. RIGHT ONE SLIGHTLY MORE COOLER. AWAKE AND ALERT. REORIENTATED TO PLACE. DENIES PAIN. HEPARIN INFUSING AT 500 UNITS HOUR. ALTEPLASE INFUSING AT 1MG HOUR IN SHEATH. REMINDED PATIENT TO KEEP LEFT LEG STRAIGHT. GAMEZ CATH PATENT.
[2020-09-28 10:05] LABS: BASOPHILS 0.7 % (0-2); EOSINOPHILS 1.5 % (0-7); HEMATOCRIT 36.3 % (42.0-54.0); HEMOGLOBIN 11.4 g/dL (13.5-17.5); LYMPHOCYTES 23.5 % (15-50); MCH 24.6 pg (26.0-34.0); MCHC 31.3 g/dL (31.0-37.0); MCV 78.5 fL (80.0-100.0); MEAN PLATELET VOLUME 9.6 fL (7.4-10.4); MONOCYTES 16.4 % (2-11); NEUTROPHILS 57.9 % (40-80); PLATELET COUNT 202 10x3/uL (130-400); RBC 4.62 10x6/uL (4.20-6.10); RDW 21.1 % (11.5-14.5); WBC 5.8 10x3/uL (4.8-10.8)
[2020-09-28 10:30] LABS: BASOPHILS 1.8 % (0-2); EOSINOPHILS 1.1 % (0-7); LYMPHOCYTES 16.7 % (15-50); MCH 24.6 pg (26.0-34.0); MCHC 31.4 g/dL (31.0-37.0); MCV 78.5 fL (80.0-100.0); MEAN PLATELET VOLUME 8.2 fL (7.4-10.4); MONOCYTES 18.5 % (2-11); NEUTROPHILS 61.9 % (40-80); PLATELET COUNT 182 10x3/uL (130-400); RBC 4.46 10x6/uL (4.20-6.10); RDW 21.1 % (11.5-14.5); WBC 5.8 10x3/uL (4.8-10.8)
[2020-09-28 10:38] LABS: APTT 46.7 SECONDS (22.8-39.4); INR 1.32 (0.85-1.17); PROTIME 15.2 SECONDS (11.6-15.0)
--- NOTE | 2020-09-28 10:55 | NUR ---
TO IR PER BED.
--- NOTE | 2020-09-28 12:20 | NUR ---
RETURNED TO ROOM PER BED. SLEEPY, AWAKES EASILY SKIN COOL AND DRY. FEM STOP LEFT FEMEROL IN PLACE WITH 86 MM PRESSURE. NO BLEEDING OR BRUISING NOTED AT SITE. RIGHT WRIST IV INFUSING WITH NS. RIGHT POSTERIOR TIBIA PULSE FAINT WITH DOPPLER. LEFT FOOT BOTH PULSES WITH DOPPLER. LEFT FOOT COOLER THAN RIGHT. BOTH FEET AND LOWER LEGS COOL TO TOUCH. OXYGEN AT 2 LITERS PER NC. GAMEZ CATH PATENT WITH CLEAR THOMAS URINE. MONITOR SR WITH OCC PACER BEATS. NO DISTRESS. RESTING COMFORTABLY.
[2020-09-28 13:32] LABS: % SATURATION 6 % (15-55); IRON 23 ug/dl (35-150); TOTAL IRON BIND CAPACITY 346 ug/dl (260-445); UNSAT IRON BIND CAPACITY 323 ug/dl (150-375)
--- NOTE | 2020-09-28 16:07 | NUR ---
HEPARIN RESTARTED ON WRIST AT 500 UNITS HOUR. 5CC HOUR.LEFT GROIN FEM STOP IN PLACE NO BLEEDING OR BRUISING NOTED. GOOD APPETITE. TAKING PO FLUIDS WELL
[2020-09-28 16:37] LABS: BASOPHILS 1.6 % (0-2); EOSINOPHILS 0.8 % (0-7); HEMATOCRIT 36.4 % (42.0-54.0); HEMOGLOBIN 11.5 g/dL (13.5-17.5); LYMPHOCYTES 16.9 % (15-50); MCH 24.7 pg (26.0-34.0); MCHC 31.5 g/dL (31.0-37.0); MCV 78.4 fL (80.0-100.0); MEAN PLATELET VOLUME 8.4 fL (7.4-10.4); MONOCYTES 17.3 % (2-11); NEUTROPHILS 63.4 % (40-80); RBC 4.65 10x6/uL (4.20-6.10); RDW 21.1 % (11.5-14.5); WBC 6.4 10x3/uL (4.8-10.8)
[2020-09-28 16:38] LABS: PLATELET COUNT 225 10x3/uL (130-400)
[2020-09-28 16:48] LABS: INR 1.25 (0.85-1.17); PROTIME 14.5 SECONDS (11.6-15.0)
[2020-09-28 16:49] LABS: APTT 38.6 SECONDS (22.8-39.4)
--- NOTE | 2020-09-28 21:49 | NUR ---
BEDSIDE SHIFT REPORT COMPLETED AT 1850, LEFT PEDAL PULSE STRONG PER PALPATION AND CONFIRMED PER DOPPLER, RIGHT POST. TIB. PULSE FAINT PER DOPPLER. FEET COOL TO TOUCH BILAT. TEGRADERM AND GAUZE TO LEFT GROIN C/D/I, SITE SOFT, ABD NON-TENDER, NO S/S OF HEMATOMIA ASSESSED. PT AAOX4. HOB FLAT UNTIL 1999. `8G PIV TO R FA WITH NS @50ML/HR AND HEPARIN @500 UNITS/HR, DAYSHIFT RN CONFIRMED WITH DR SANDY TO KEEP SET RATE OF 500UNITS/HR UNTIL 0400 PTT RESULTS AND THEN BEGAIN TO ADJUST DRIP PER PROTOCOL. RESP EVEN/UNLABORED ON ROOM AIR. VITAL SIGNS STABLE. PT REPORTED ACHING PAIN TO RIGHT GROIN AND IN BOTH LEGS THAT IS CONSTANT AND RATED 10/10 AT BEGINNING OF SHIFT, DILAUDID SHORTS SIFTER STARTED PER PROTOCOL, PT EDUCATED ON USE OF SHORTS SIFTER, PT NOW REPORTS HIS PAIN IS BETTER CONTROLLED. PLAN OF CARE FOR NIGHT DISCUSSED, PT DENIES QUESTIONS, COMPLAINTS OR UNMET NEEDS. CALL LIGHT AND PERSONAL BELONGINGS WITHIN REACH.
[2020-09-28 23:01] LABS: BASOPHILS 1.2 % (0-2); EOSINOPHILS 0.5 % (0-7); HEMATOCRIT 35.2 % (42.0-54.0); LYMPHOCYTES 12.1 % (15-50); MCH 24.4 pg (26.0-34.0); MCHC 31.2 g/dL (31.0-37.0); MCV 78.3 fL (80.0-100.0); MEAN PLATELET VOLUME 8.4 fL (7.4-10.4); MONOCYTES 21.3 % (2-11); NEUTROPHILS 64.9 % (40-80); PLATELET COUNT 220 10x3/uL (130-400); RBC 4.49 10x6/uL (4.20-6.10); RDW 20.8 % (11.5-14.5); WBC 6.8 10x3/uL (4.8-10.8)
[2020-09-28 23:21] LABS: INR 1.26 (0.85-1.17); PROTIME 14.6 SECONDS (11.6-15.0)
[2020-09-29] VITALS (23 sets, daily range): BP systolic 110–140; BP diastolic 63–98; Ht 165.1 cm; Wt 71.4 kg
--- NOTE | 2020-09-29 03:23 | NUR ---
PT RIGHT POSTERIOR TIB PULSE DIFFICULT TO DOPPLER, INSTRUCTED PT TO KEEP LEGS STRIGHT AND LAY ON BACK, THEN PLACED BAREHUGGER ON PT LOWER EXTREMITIES AND WAITED FOR FEET TO WARM, RE-ASSESED AND FOUND PULSE PURE DOPPLER. PT INSTRUCTED NOT TO LAY WITH LEGS CROSSED. PULSE MARKED. LEFT PEDAL PULSE REMAINS STRONG PER PALPATION AND IS EASILY VERIFIED PER DOPPLER.
[2020-09-29 04:13] LABS: HEMATOCRIT 33.6 % (42.0-54.0); HEMOGLOBIN 10.6 g/dL (13.5-17.5); MCH 24.6 pg (26.0-34.0); MCHC 31.5 g/dL (31.0-37.0); MEAN PLATELET VOLUME 8.1 fL (7.4-10.4); RBC 4.31 10x6/uL (4.20-6.10); RDW 20.3 % (11.5-14.5); WBC 5.8 10x3/uL (4.8-10.8)
[2020-09-29 04:28] LABS: INR 1.31 (0.85-1.17); PROTIME 15.1 SECONDS (11.6-15.0)
[2020-09-29 04:29] LABS: APTT 48.2 SECONDS (22.8-39.4)
[2020-09-29 04:38] LABS: ALBUMIN 3.2 g/dL (3.4-5.0); ANION GAP 13.4 mmol/L (8-16); BILIRUBIN - TOTAL 0.66 mg/dL (0.2-1.3); CARBON DIOXIDE 24.2 mmol/L (21.0-32.0); CREATININE - SERUM 1.1 mg/dL (0.6-1.3); MAGNESIUM - SERUM 2.2 mg/dL (1.8-2.4); PHOSPHOROUS 3.4 mg/dL (2.5-4.9); POTASSIUM - SERUM 3.6 mmol/L (3.5-5.1); PROTEIN - SERUM 6.5 g/dL (6.4-8.2)
--- NOTE | 2020-09-29 05:11 | NUR ---
APTT RESULT FROM 0400 LAB 48.2, HEP GTT INCREASED FROM 500UNITS/HR TO 600UNITS/HR, WILL RECHECK LAB @1100.
--- NOTE | 2020-09-29 06:46 | NUR ---
RIGHT POST TIB PRESENT PER DOPPLER, LEFT PEDAL PULSE REMAINS STRONG PER PALPATION AND DOPPLER. BILAT FEET UNDER BAREHUGGER.
--- NOTE | 2020-09-29 08:49 | NUR ---
AFTER EATING 100% BREAKFAST PT EXPERIENCED EPISODE OF EMESIS. PRN ZOFRAN ADMIN. PT STATES HE NOW FEELS BETTER. HE STATED HE DID NOT THINK THE FLAVOR OF THE EGGS AGREED WITH HIM. VSS. WILL CONTINUE TO OBSERVE.
--- NOTE | 2020-09-29 15:10 | NUR ---
DR COLES NOTIFIED OF CONSULT AT 09/29 AT 1511.
--- NOTE | 2020-09-29 17:17 | MORECARE ---
CASE MANAGEMENT DISCHARGE SUMMARY PATIENT: ARMANDO ZAVALA UNIT: [id number] ADM DATE: 09/27/20 AGE: 59 : 64 SEX: M ROOM/BED: [facility] AUTHOR: NURYSDOC PHYSICIAN: REFERRING PHYSICIAN: LILA DAVIS MD DATE OF SERVICE: 09/29/20 Case Management Discharge Planning Summary DCP REVIEW SUMMARY ANTICIPATED D/C DATE: EXPECTED LOS : CASE STATUS: DCP Initiated INITIAL REVIEW: 09/27/2020 INITIAL REVIEWER: Ozzy Chaudhry FINAL DISCHARGE DISPOSITION: : FINAL REVIEWER: FINAL REVIEW DATE: DCP Focus Questions & Answers QUESTION: ANSWER : PATIENT: ARMANDO ZAVALA ENCOUNTER: [id number] MEDICAL RECORD#: [id number] ADMISSION DATE: 09/27/2020 DISCHARGE DATE: ATTENDING MD: LILA RO : AGE: 59 MARITAL STATUS: U DC PLAN ID: [id number] FACILITY: [facility] PRINTED ON: 09/29/20 17:17 CT All edits/amendments must be made on the electronic document DICTATION DATE: 09/29/201716 PERENNIAL HOUSE MANAGER: DM 09/29/201716 RPT#: [id number] DC DATE: STATUS: ADM IN [place] [address] [place] [address] END OF REPORT
--- NOTE | 2020-09-29 17:27 | MORECARE ---
CASE MANAGEMENT DISCHARGE SUMMARY PATIENT: ARMANDO HINES UNIT: [id number] ADM DATE: 09/27/20 AGE: 59 : 64 SEX: M ROOM/BED: D.CV03 AUTHOR: NURYSDOC PHYSICIAN: REFERRING PHYSICIAN: LILA DAVIS MD DATE OF SERVICE: 09/29/20 Case Management Discharge Planning Summary COMMENTS ENTERED DATE: 09/29/20 17:18 CT COMMENT TYPE: Discharge Planning REVIEWER: Ozzy Chaudhry CM met with patient to complete DC plan and to evaluate needs. Patient lives independently with his significant other, Zabrina Pereira. Patient stated that his home is safe and has electricity and running water. Patient stated that the home has 0 steps to enter and he is able to manage entering his home without difficulty. Patient stated that he has a walker and cane but he is able to get around with help from his significant other. Patient stated that he has no problems paying for medications and he fills his medications at [facility]. Patient stated that his primary care physician is Dr. Vera. At discharge, the patient plans to return home and feels this is a safe discharge. CM discussed availability of home health, rehab services, and medical equipment. Patient declined HHS, SNF, IPR, and DME. Patient voiced no other needs at this time and is satisfied with DC plan. Transportation provider at discharge will be with his sister, Olimpia Hines. Patient declined to sign IMM at this time. DC IMM explained and understood but patient stated that he is too cold to sign at this time. CM will continue to follow and will assist as needed with dc plans/needs. DCP REVIEW SUMMARY ANTICIPATED D/C DATE: EXPECTED LOS : CASE STATUS: DCP Initiated INITIAL REVIEW: 09/27/2020 INITIAL REVIEWER: Ozzy Chaudhry FINAL DISCHARGE DISPOSITION: : FINAL REVIEWER: FINAL REVIEW DATE: DCP Focus Questions & Answers DCP Evaluation QUESTION: ANSWER Patient gives permission to discuss discharge plans with: (name, relationship and number) : significant other, Zabrina Pereira, (PHONE NUMBER NOT GIVEN) Patient's ability to cope with chronic illness : d. No chronic illness Patient's current cognitive status: : *Oriented to person, place, situation, time and present Family / Caregiver's ability to cope with chronic illness: : a. Adequate (ability to meet patient's medical needs, ensures patient attends medical appts.) Patient and/or caregiver agree upon recommended discharge plan? : Yes Physical Status: : Independent with ADL's Family / Caregiver's ability to cope with chronic illness: : a. Adequate (ability to meet patient's medical needs, ensures patient attends medical appts.) Functional screen assessment: : Basic needs can adequately be met by self Does the patient have the ability to pay for or attain post discharge needs / services? : Yes Living Arrangements: : Home with Spouse/Significant Other Is there a likelihood that the patient will require additional services to return to the preadmission environment? : Yes Equipment needed for post hospitalization: : None Baseline cognitive status: : *Oriented to person, place, situation, time and present Patient with capacity for self-care or can be cared for in same environment as prior to hospitalization? : Yes Physical environment modification needed / anticipated for discharge: : No Medication Management: : Patient states can afford medications Medication Management: : Patient states can read and understand medication labels Pharmacy name(s): : [facility] Does Patient have transportation to get home and to follow-up medical appointments when discharged from the hospital? : Yes Would patient like to participate in any Care Coordination programs (if applicable): : Not applicable Does the patient have electricity at home? : Yes Does the patient have running water in their house? : Yes Equipment in use: : Cane - Single Leg Equipment in use: : Walker - Rolling Mental health screen: : No mental health history DCP Re-evaluation QUESTION: ANSWER Would patient like to participate in any Care Coordination programs (if applicable): : Not applicable PATIENT: ARMANDO HINES ENCOUNTER: [id number] MEDICAL RECORD#: [id number] ADMISSION DATE: 09/27/2020 DISCHARGE DATE: ATTENDING MD: LILA RO : AGE: 59 MARITAL STATUS: U DC PLAN ID: [id number] FACILITY: [facility] PRINTED ON: 09/29/20 17:27 CT All edits/amendments must be made on the electronic document DICTATION DATE: 09/29/201726 STATION REPAIRER: ANTONIO 09/29/201726 RPT#: [id number] DC DATE: STATUS: ADM IN [facility] [address] [place] [address] END OF REPORT
--- NOTE | 2020-09-29 17:32 | NUR ---
URINE OUTPUT FOR THIS SHIFT IS 225 ML VIA GAMEZ. PT HAS NOT BEEN DRINKING MUCH FLUIDS TODAY SINCE THIS EPISODE OF EMESIS THIS MORNING WITH NAUSEA DURING LUNCH TIME (JESSE HANSEN HELPED WITH THIS). DR SANDY NOTIFIED OF THIS AND HE STAETD TO LET PRIMARY PROVIDER KNOW. SPOKE WITH DR ANDERSON WHO GAVE ORDERS TO INCREASE PTS NS FROM 50 TO 100ML/HR FOR 4 HOURS AND THEN DECREASE THIS RATE BACK TO 50ML/HR. HE CURRENTLY HAS 1 BAG OF NS AT 20 ML/HR AND THE SECOND BAG OF NS AT 30ML/HR TO EQUAL A TOTAL OF 50ML/HR WILL INCREASE THE 30ML/HR BAG TO 80 ML/HR FOR 4 HOURS TO EQUAL THE ORDERED 100ML/HR X 4H. WILL CONTINUE TO CLOSELY OBSERVE.
--- NOTE | 2020-09-29 18:31 | NUR ---
CARDIOLOGY PAGED TO NOTIFY OF CONSULT.
--- NOTE | 2020-09-29 18:44 | MORECARE ---
CASE MANAGEMENT DISCHARGE SUMMARY PATIENT: ARMANDO HINES UNIT: [id number] ADM DATE: 09/27/20 AGE: 59 : 64 SEX: M ROOM/BED: D.CV03 AUTHOR: NURYS,DOC PHYSICIAN: REFERRING PHYSICIAN: LILA DAVIS MD DATE OF SERVICE: 09/29/20 Case Management Discharge Planning Summary COMMENTS ENTERED DATE: 09/29/20 17:18 CT COMMENT TYPE: Discharge Planning REVIEWER: Ozzy Chaudhry CM met with patient to complete DC plan and to evaluate needs. Patient lives independently with his significant other, Zabrina Pereira. Patient stated that his home is safe and has electricity and running water. Patient stated that the home has 0 steps to enter and he is able to manage entering his home without difficulty. Patient stated that he has a walker and cane but he is able to get around with help from his significant other. Patient stated that he has no problems paying for medications and he fills his medications at [facility]. Patient stated that his primary care physician is Dr. Vera. At discharge, the patient plans to return home and feels this is a safe discharge. CM discussed availability of home health, rehab services, and medical equipment. Patient declined HHS, SNF, IPR, and DME. Patient voiced no other needs at this time and is satisfied with DC plan. Transportation provider at discharge will be with his sister, Olimpia Hines. Patient declined to sign IMM at this time. DC IMM explained and understood but patient stated that he is too cold to sign at this time. CM will continue to follow and will assist as needed with dc plans/needs. Appended by Ozzy Chaudhry on 09/29/2020 18:41 CDT: DC IMM delivered, explained, signed by the patient, and placed in chart. Copy of form also left with the patient. CM will continue to follow and will assist as needed with dc plans/needs. DCP REVIEW SUMMARY ANTICIPATED D/C DATE: EXPECTED LOS : CASE STATUS: DCP Initiated INITIAL REVIEW: 09/27/2020 INITIAL REVIEWER: Ozzy Chaudhry FINAL DISCHARGE DISPOSITION: : FINAL REVIEWER: FINAL REVIEW DATE: DCP Focus Questions & Answers DCP Evaluation QUESTION: ANSWER Patient gives permission to discuss discharge plans with: (name, relationship and number) : significant other, Zabrina Pereira, (PHONE NUMBER NOT GIVEN) Patient's ability to cope with chronic illness : d. No chronic illness Patient's current cognitive status: : *Oriented to person, place, situation, time and present Family / Caregiver's ability to cope with chronic illness: : a. Adequate (ability to meet patient's medical needs, ensures patient attends medical appts.) Patient and/or caregiver agree upon recommended discharge plan? : Yes Physical Status: : Independent with ADL's Family / Caregiver's ability to cope with chronic illness: : a. Adequate (ability to meet patient's medical needs, ensures patient attends medical appts.) Functional screen assessment: : Basic needs can adequately be met by self Does the patient have the ability to pay for or attain post discharge needs / services? : Yes Living Arrangements: : Home with Spouse/Significant Other Is there a likelihood that the patient will require additional services to return to the preadmission environment? : Yes Equipment needed for post hospitalization: : None Baseline cognitive status: : *Oriented to person, place, situation, time and present Patient with capacity for self-care or can be cared for in same environment as prior to hospitalization? : Yes Physical environment modification needed / anticipated for discharge: : No Medication Management: : Patient states can afford medications Medication Management: : Patient states can read and understand medication labels Pharmacy name(s): : [facility] Does Patient have transportation to get home and to follow-up medical appointments when discharged from the hospital? : Yes Would patient like to participate in any Care Coordination programs (if applicable): : Not applicable Does the patient have electricity at home? : Yes Does the patient have running water in their house? : Yes Equipment in use: : Cane - Single Leg Equipment in use: : Walker - Rolling Mental health screen: : No mental health history DCP Re-evaluation QUESTION: ANSWER Would patient like to participate in any Care Coordination programs (if applicable): : Not applicable PATIENT: ARMANDO HINES ENCOUNTER: [id number] MEDICAL RECORD#: [id number] ADMISSION DATE: 09/27/2020 DISCHARGE DATE: ATTENDING MD: LILA RO : AGE: 59 MARITAL STATUS: U DC PLAN ID: [id number] FACILITY: [facility] PRINTED ON: 09/29/20 18:44 CT All edits/amendments must be made on the electronic document DICTATION DATE: 09/29/201843 WELDING SUPERVISOR: ANTONIO 09/29/201843 RPT#: [id number] DC DATE: STATUS: ADM IN [facility] [address] [place] [address] END OF REPORT
--- NOTE | 2020-09-29 19:40 | NUR ---
BEDSIDE SHIFT REPORT RECIEVED, PT AAOX4, ASSESSED, LEFT PEDAL PULSE PALPABLE AND CONFIRMED PER DOPPLER, LEFT POST TIB PULSE PRESENT PER DOPPLER, RIGHT PEDAL ABSENT, RIGHT POST. TIB PRESNET PER DOPPLER, BLE WARM. PT CAN DISTINGUISH BETWEEN SHARP AND DULL SENSATION ON LEFT FOOT, SINSATION INTACT TO ALL TOES WITH MILD NUMBNESS THROUGHOUT LLE. RLE PT CAN NOT DISTINGUISH BETWEEN SHARP AND DULL, BUT CAN FEEL DULL PRESSURE TO FOOTBED, SENSATION ABSENT TO RIGHT SMALL TOE. 18G PIV TO RIGHT WRIST WITH NS 20ML/HR AND HEPARIN @7 UNITS/HR, LAB AT BEDSIDE OBTAINING PTT. 20G PIV TO LEFT WRIST WITH DILAUDID SUPERVISOR CARTON AND CAN SUPPLY AND NS @80ML/HR. PT REPORTS NAUSEA THAT BEGAIN WITH DILAUDID SUPERVISOR CARTON AND CAN SUPPLY INITATION. WILL KATRIN REBOLLAR. 14F COUPJ GAMEZ DRAINING CLEAR YELLOW URINE. 02 VIA NC @2L. CALL LIGHT WITHIN REACH, WILL CONT TO MONITOR.
--- NOTE | 2020-09-29 22:24 | NUR ---
PAGED DR VALLES X2 AT 2134 AND 2199, UNABLE TO REACH, PT DOES NOT HAVE EMERGANT NEEDS, PAGED SIDE PULLER ASSISTANT TRACK COACH Alo JACOBS SIDE PULLER, SIDE PULLER RESPONDED TO PAGE, REPORTED PT NAUSEA BEGAIN WHEN REGISTERED NURSE BONE MARROW TRANSPLANT BEGAIN AND PT REMAINS WITH DECREASED UOP 80ML THUS FAR SINCE 1899, REQUESTED FLOMAX AND STOOL SOFTNER AND PO PAIN MED WITH MORPHINE IVP FOR BREAKTHROUGH PAIN. SIDE PULLER GAVE ORDERS FOR FLOMAX AND COLACE, ALSO TO D/C REGISTERED NURSE BONE MARROW TRANSPLANT AND ORDER NORCO 10/325 Q6H FOR PAIN AND MORPHINE 1MG-4MG IVP PRN FOR BREAKTHROUGH PAIN ONLY AFTER NORCO HAS BEEN ATTEMPTED.
--- NOTE | 2020-09-29 23:46 | NUR ---
pt pulses assessed, no changes. dilaudid engraver hand soft metals d/c'd, syringe emtpy at time of d/c, dilaudid has been off since 2099, empty syringe from engraver hand soft metals witnessed per Zoë Bray will re-assess for pain control.
[2020-09-30] VITALS (22 sets, daily range): BP systolic 98–149; BP diastolic 48–96
[2020-09-30 02:32] LABS: BILIRUBIN NEGATIVE (NEGATIVE); KETONE NEGATIVE (NEGATIVE); NITRITE NEGATIVE (NEGATIVE); UROBILINOGEN NORMAL mg/dL (< 2)
[2020-09-30 02:33] LABS: BACTERIA FEW HPF (NONE SEEN); SQUAMOUS EPITHELIAL 0-5 HPF (0-4); WHITE CELLS - URINE 0-5 HPF (0-1)
[2020-09-30 02:53] LABS: HEMATOCRIT 29.6 % (42.0-54.0); HEMOGLOBIN 9.4 g/dL (13.5-17.5); MCV 78.3 fL (80.0-100.0); MEAN PLATELET VOLUME 8.2 fL (7.4-10.4); RBC 3.77 10x6/uL (4.20-6.10); RDW 20.1 % (11.5-14.5)
[2020-09-30 02:57] LABS: WBC 9.8 10x3/uL (4.8-10.8)
[2020-09-30 03:06] LABS: ALBUMIN 2.9 g/dL (3.4-5.0); ALKALINE PHOSPHATASE 143 U/L (30-120); ALT (SGPT) 41 U/L (10-68); BILIRUBIN - TOTAL 0.98 mg/dL (0.2-1.3); CALC OSMOLALITY 270 mosm/kg (275-300); CARBON DIOXIDE 22.9 mmol/L (21.0-32.0); CHLORIDE - SERUM 102 mmol/L (98-107); GLUCOSE 142 mg/dL (74-106); MAGNESIUM - SERUM 1.8 mg/dL (1.8-2.4); POTASSIUM - SERUM 3.6 mmol/L (3.5-5.1); PROTEIN - SERUM 6.1 g/dL (6.4-8.2); SODIUM 134 mmol/L (136-145); UREA NITROGEN 15 mg/dL (7-18); eGFR NON AFRICAN AMERICAN 82 mL/min (90-120)
[2020-09-30 03:07] LABS: PHOSPHOROUS 2.4 mg/dL (2.5-4.9)
--- NOTE | 2020-09-30 03:39 | NUR ---
PT OOB TO BSC FOR BM, PT REPORTS PAIN TO BLE, TOO SOON FOR PRN NORCO, PRN MORPHINE GIVEN. PT ASSISTED BACK TO BED, PULSES ASSESSED AND NO CHANGES NOTED. CALL LIGHT WITHIN REACH, WILL CONT TO MONITOR.
--- NOTE | 2020-09-30 04:32 | NUR ---
APTT'S WITHIN THERAPUTIC RANGE, APTT LAB ORDERED DAILY, RATE REMIANS AT 7 UNITS/HR. PT RESTING COMFORTABLY AFTER PRN MORPHINE, NO COMPLAINTS OF NAUSEA WITH MED ADMINISTRATION.
--- NOTE | 2020-09-30 09:33 | NUR ---
Nutrition Follow-up: Ate 100% of breakfast this AM. Noted pt with N/V yesterday morning; none today. Diet: Regular Wt: 144# (09/30) Labs noted: Na 134, Glu 142, Ca 8.0, PO4 2.4, Alb 2.9 Meds noted: Colace, Protonix, Zofran, NS @ 50, electrolyte protocol -Encourage PO intake and honor food preferences. -Monitor wt. -RD follow-up: 10/02
--- NOTE | 2020-09-30 11:46 | NUR ---
IV TUBING CHANGED ON HEPARIN AND NS THIS SHIFT, INFUSING TO LEFT PIV, R PIV FLUSHED AND PATENT PT ENCOURAGED TO STAY OOB AND USE IS HOURLY, PT REFUSING TO STAY OOB AND TRANSFERS SELF BACK TO BED
--- NOTE | 2020-09-30 12:56 | NUR ---
PATIENT TRANSFERED SELF TO BATHROOM AND UNHOOKED IV. UPON RETURN NEW IV FLUIDS AND TUBING INITATED. DISCUSSED WITH PATIENT TO NOT REMOVE NURSING EQUIPMENT AND USE CALL LIGHT FOR ASSISTANCE TO TRANSFER.
--- NOTE | 2020-09-30 13:19 | MORECARE ---
CASE MANAGEMENT DISCHARGE SUMMARY PATIENT: ARMANDO HINES UNIT: [id number] ADM DATE: 09/27/20 AGE: 59 : 64 SEX: M ROOM/BED: D.CV03 AUTHOR: NURYS,DOC PHYSICIAN: REFERRING PHYSICIAN: LILA DAVIS MD DATE OF SERVICE: 09/30/20 Case Management Discharge Planning Summary COMMENTS ENTERED DATE: 09/29/20 17:18 CT COMMENT TYPE: Discharge Planning REVIEWER: Ozzy Chaudhry CM met with patient to complete DC plan and to evaluate needs. Patient lives independently with his significant other, Zabrina Pereira. Patient stated that his home is safe and has electricity and running water. Patient stated that the home has 0 steps to enter and he is able to manage entering his home without difficulty. Patient stated that he has a walker and cane but he is able to get around with help from his significant other. Patient stated that he has no problems paying for medications and he fills his medications at [facility]. Patient stated that his primary care physician is Dr. Vera. At discharge, the patient plans to return home and feels this is a safe discharge. CM discussed availability of home health, rehab services, and medical equipment. Patient declined HHS, SNF, IPR, and DME. Patient voiced no other needs at this time and is satisfied with DC plan. Transportation provider at discharge will be with his sister, Olimpia Hines. Patient declined to sign IMM at this time. DC IMM explained and understood but patient stated that he is too cold to sign at this time. CM will continue to follow and will assist as needed with dc plans/needs. Appended by Ozzy Chaudhry on 09/29/2020 18:41 CDT: DC IMM delivered, explained, signed by the patient, and placed in chart. Copy of form also left with the patient. CM will continue to follow and will assist as needed with dc plans/needs. DCP REVIEW SUMMARY ANTICIPATED D/C DATE: EXPECTED LOS : CASE STATUS: DCP Initiated INITIAL REVIEW: 09/27/2020 INITIAL REVIEWER: Ozzy Chaudhry FINAL DISCHARGE DISPOSITION: : FINAL REVIEWER: FINAL REVIEW DATE: DCP Focus Questions & Answers DCP Evaluation QUESTION: ANSWER Patient and/or caregiver agree upon recommended discharge plan? : Yes Family / Caregiver's ability to cope with chronic illness: : a. Adequate (ability to meet patient's medical needs, ensures patient attends medical appts.) Patient's current cognitive status: : *Oriented to person, place, situation, time and present Patient's ability to cope with chronic illness : d. No chronic illness Patient gives permission to discuss discharge plans with: (name, relationship and number) : significant other, Zabrina Pereira, (PHONE NUMBER NOT GIVEN) Does the patient have the ability to pay for or attain post discharge needs / services? : Yes Functional screen assessment: : Basic needs can adequately be met by self Family / Caregiver's ability to cope with chronic illness: : a. Adequate (ability to meet patient's medical needs, ensures patient attends medical appts.) Physical Status: : Independent with ADL's Equipment needed for post hospitalization: : None Is there a likelihood that the patient will require additional services to return to the preadmission environment? : Yes Living Arrangements: : Home with Spouse/Significant Other Patient with capacity for self-care or can be cared for in same environment as prior to hospitalization? : Yes Baseline cognitive status: : *Oriented to person, place, situation, time and present Physical environment modification needed / anticipated for discharge: : No Medication Management: : Patient states can read and understand medication labels Medication Management: : Patient states can afford medications Pharmacy name(s): : [facility] Does Patient have transportation to get home and to follow-up medical appointments when discharged from the hospital? : Yes Would patient like to participate in any Care Coordination programs (if applicable): : Not applicable Does the patient have electricity at home? : Yes Does the patient have running water in their house? : Yes Equipment in use: : Walker - Rolling Equipment in use: : Cane - Single Leg Mental health screen: : No mental health history DCP Re-evaluation QUESTION: ANSWER Would patient like to participate in any Care Coordination programs (if applicable): : Not applicable PATIENT: ARMANDO HINES ENCOUNTER: [id number] MEDICAL RECORD#: [id number] ADMISSION DATE: 09/27/2020 DISCHARGE DATE: ATTENDING MD: LILA RO : AGE: 59 MARITAL STATUS: U DC PLAN ID: [id number] FACILITY: [facility] PRINTED ON: 09/30/20 13:19 CT All edits/amendments must be made on the electronic document DICTATION DATE: 09/30/201318 EXECUTIVE CONSULTANT: ANTONIO 09/30/201318 RPT#: [id number] DC DATE: STATUS: ADM IN [facility] [address] [place] [address] END OF REPORT
--- NOTE | 2020-09-30 18:06 | NUR ---
THROUGHOUT DAY PT TAKING BP CUFF OFF AND REFUSING TO LEAVE ON DESPITE DISCUSSING IMPORTANCE OF MONITORING EQUIPMENT, SPOKE WITH DR ANDERSON ABOUT THIS AND SELF TRANSFERRING WHILE IN UNIT
[2020-10-01] VITALS (11 sets, daily range): BP systolic 110–141; BP diastolic 54–98
[2020-10-01 05:27] LABS: BASOPHILS 0.9 % (0-2); EOSINOPHILS 0.3 % (0-7); HEMATOCRIT 28.4 % (42.0-54.0); HEMOGLOBIN 9.2 g/dL (13.5-17.5); LYMPHOCYTES 14.7 % (15-50); MCH 25.3 pg (26.0-34.0); MCHC 32.4 g/dL (31.0-37.0); MCV 78.2 fL (80.0-100.0); MEAN PLATELET VOLUME 8.9 fL (7.4-10.4); MONOCYTES 21.4 % (2-11); NEUTROPHILS 62.7 % (40-80); PLATELET COUNT 183 10x3/uL (130-400); RBC 3.64 10x6/uL (4.20-6.10); RDW 20.3 % (11.5-14.5)
[2020-10-01 05:34] LABS: WBC 6.3 10x3/uL (4.8-10.8)
[2020-10-01 05:39] LABS: INR 1.4 (0.85-1.17); PROTIME 15.9 SECONDS (11.6-15.0)
[2020-10-01 05:51] LABS: ALBUMIN 2.9 g/dL (3.4-5.0); ALKALINE PHOSPHATASE 190 U/L (30-120); ALT (SGPT) 42 U/L (10-68); BILIRUBIN - TOTAL 0.81 mg/dL (0.2-1.3); CALC OSMOLALITY 273 mosm/kg (275-300); CALCIUM 8.6 mg/dL (8.5-10.1); CARBON DIOXIDE 23.8 mmol/L (21.0-32.0); CHLORIDE - SERUM 103 mmol/L (98-107); CREATININE - SERUM 0.9 mg/dL (0.6-1.3); GLUCOSE 111 mg/dL (74-106); MAGNESIUM - SERUM 1.8 mg/dL (1.8-2.4); PHOSPHOROUS 1.8 mg/dL (2.5-4.9); POTASSIUM - SERUM 3.8 mmol/L (3.5-5.1); PROTEIN - SERUM 6.4 g/dL (6.4-8.2); SODIUM 136 mmol/L (136-145); UREA NITROGEN 16 mg/dL (7-18); eGFR NON AFRICAN AMERICAN > 90 mL/min (90-120)
[2020-10-01 05:57] LABS: APTT 123.2 SECONDS (22.8-39.4)
--- NOTE | 2020-10-01 10:28 | NUR ---
PATIENT WENT TO SURGERY
--- NOTE | 2020-10-01 15:01 | NUR ---
1206 DR HAYES ORDERED - EPI GIVEN 1/2 AMP IV BY NURSE 1208 DR HAYES ORDERED - 1 AMP BICARB GIVEN IV BY NURSE 1208 DR HAYES ORDERED - 1/2 AMP EPI GIVEN IV BY NURSE 1209 DR HAYES ORDERED - 20 UNITS VASOPRESSIN GIVEN IV BY NURSE 1209 - COMPRESSIONS STARTED AND CODE CALLED 1212 - DR HAYES ORDERED - 20 UNITS VASOPRESSIN GIVEN IV BY NURSE 1212 - DR HAYES ORDERED - 1 AMP EPI IV - GIVEN BY NURSE 1213 - DR HAYES ORDERED - 1 AMP CALCIUM IV - GIVEN IV BY NURSE 1215 - DR HAYES ORDERED - 1 AMP EPI IV - GIVEN BY NURSE 1216 - SHOCKED @ 200J 1218 - DR HAYES ORDERED - 1 AMP EPI IV - GIVEN BY NURSE 1221 - DR HAYES ORDERED - 1 AMP LIDOCAINE IV - GIVEN BY NURSE 1221 - SHOCK 1223 - BLOOD GAS 1224 - DR HAYES ORDERED - 1 AMP EPI IV - GIVEN BY NURSE 1226 - DR HAYES ORDERED - 2 AMPS SODIUM BICARB IV - GIVEN BY NURSE 1231 - PT TIME OF CALLED BY DR HAYES
--- NOTE | 2020-10-01 16:49 | NUR ---
CALL RECEIVED FROM DAY ZAVALA PT 'S SISTER. NOTIFIED HER OF PACING OF PATIENT. ASKED HER WHICH HOME SHE WANTED HIM TO GO TO. SHE WILL TALK TO PT'S FIANCE AND CALL BACK.
--- NOTE | 2020-10-01 17:06 | NUR ---
SPOKE WITH BROCK. WAITING HUMAN RESOURCES SPECIALIST BACK TO SEE IF PT IS POTENTIAL DONOR.
--- NOTE | 2020-10-01 19:03 | MORECARE ---
CASE MANAGEMENT DISCHARGE SUMMARY PATIENT: ARMANDO HINES UNIT: [id number] ADM DATE: 09/27/20 AGE: 59 : 64 SEX: M ROOM/BED: D.CV03 AUTHOR: NURYS,DOC PHYSICIAN: REFERRING PHYSICIAN: LILA DAVIS MD DATE OF SERVICE: 10/01/20 Case Management Discharge Planning Summary COMMENTS ENTERED DATE: 09/29/20 17:18 CT COMMENT TYPE: Discharge Planning REVIEWER: Ozzy Chaudhry CM met with patient to complete DC plan and to evaluate needs. Patient lives independently with his significant other, Zabrina Pereira. Patient stated that his home is safe and has electricity and running water. Patient stated that the home has 0 steps to enter and he is able to manage entering his home without difficulty. Patient stated that he has a walker and cane but he is able to get around with help from his significant other. Patient stated that he has no problems paying for medications and he fills his medications at [facility]. Patient stated that his primary care physician is Dr. Vera. At discharge, the patient plans to return home and feels this is a safe discharge. CM discussed availability of home health, rehab services, and medical equipment. Patient declined HHS, SNF, IPR, and DME. Patient voiced no other needs at this time and is satisfied with DC plan. Transportation provider at discharge will be with his sister, Olimpia Hines. Patient declined to sign IMM at this time. DC IMM explained and understood but patient stated that he is too cold to sign at this time. CM will continue to follow and will assist as needed with dc plans/needs. Appended by Ozzy Chaudhry on 09/29/2020 18:41 CDT: DC IMM delivered, explained, signed by the patient, and placed in chart. Copy of form also left with the patient. CM will continue to follow and will assist as needed with dc plans/needs. DCP REVIEW SUMMARY ANTICIPATED D/C DATE: EXPECTED LOS : CASE STATUS: DCP Initiated INITIAL REVIEW: 09/27/2020 INITIAL REVIEWER: Ozzy Chaudhry FINAL DISCHARGE DISPOSITION: : FINAL REVIEWER: FINAL REVIEW DATE: DCP Focus Questions & Answers DCP Evaluation QUESTION: ANSWER Patient and/or caregiver agree upon recommended discharge plan? : Yes Family / Caregiver's ability to cope with chronic illness: : a. Adequate (ability to meet patient's medical needs, ensures patient attends medical appts.) Patient's current cognitive status: : *Oriented to person, place, situation, time and present Patient's ability to cope with chronic illness : d. No chronic illness Patient gives permission to discuss discharge plans with: (name, relationship and number) : significant other, Zabrina Pereira, (PHONE NUMBER NOT GIVEN) Does the patient have the ability to pay for or attain post discharge needs / services? : Yes Functional screen assessment: : Basic needs can adequately be met by self Family / Caregiver's ability to cope with chronic illness: : a. Adequate (ability to meet patient's medical needs, ensures patient attends medical appts.) Physical Status: : Independent with ADL's Equipment needed for post hospitalization: : None Is there a likelihood that the patient will require additional services to return to the preadmission environment? : Yes Living Arrangements: : Home with Spouse/Significant Other Patient with capacity for self-care or can be cared for in same environment as prior to hospitalization? : Yes Baseline cognitive status: : *Oriented to person, place, situation, time and present Physical environment modification needed / anticipated for discharge: : No Medication Management: : Patient states can read and understand medication labels Medication Management: : Patient states can afford medications Pharmacy name(s): : [facility] Does Patient have transportation to get home and to follow-up medical appointments when discharged from the hospital? : Yes Would patient like to participate in any Care Coordination programs (if applicable): : Not applicable Does the patient have electricity at home? : Yes Does the patient have running water in their house? : Yes Equipment in use: : Walker - Rolling Equipment in use: : Cane - Single Leg Mental health screen: : No mental health history DCP Re-evaluation QUESTION: ANSWER Would patient like to participate in any Care Coordination programs (if applicable): : Not applicable PATIENT: ARMANDO HINES ENCOUNTER: [id number] MEDICAL RECORD#: [id number] ADMISSION DATE: 09/27/2020 DISCHARGE DATE: 10/01/2020 ATTENDING MD: LILA RO : AGE: 59 MARITAL STATUS: U DC PLAN ID: [id number] FACILITY: [facility] PRINTED ON: 10/01/20 19:03 CT All edits/amendments must be made on the electronic document DICTATION DATE: 10/01/201902 REPAIRER ART OBJECTS: ANTONIO 10/01/201902 RPT#: [id number] DC DATE:10/01/20 STATUS: DIS IN [facility] [address] [facility] [place] [address] END OF REPORT
--- NOTE | 2020-10-02 16:58 | MORECARE ---
CASE MANAGEMENT DISCHARGE SUMMARY PATIENT: ARMANDO HINES UNIT: [id number] ADM DATE: 09/27/20 AGE: 59 : 64 SEX: M ROOM/BED: D.CV03 AUTHOR: NURYS,DOC PHYSICIAN: REFERRING PHYSICIAN: LILA DAVIS MD DATE OF SERVICE: 10/02/20 Case Management Discharge Planning Summary COMMENTS ENTERED DATE: 09/29/20 17:18 CT COMMENT TYPE: Discharge Planning REVIEWER: Ozzy Chaudhry CM met with patient to complete DC plan and to evaluate needs. Patient lives independently with his significant other, Zabrina Pereira. Patient stated that his home is safe and has electricity and running water. Patient stated that the home has 0 steps to enter and he is able to manage entering his home without difficulty. Patient stated that he has a walker and cane but he is able to get around with help from his significant other. Patient stated that he has no problems paying for medications and he fills his medications at [facility]. Patient stated that his primary care physician is Dr. Vera. At discharge, the patient plans to return home and feels this is a safe discharge. CM discussed availability of home health, rehab services, and medical equipment. Patient declined HHS, SNF, IPR, and DME. Patient voiced no other needs at this time and is satisfied with DC plan. Transportation provider at discharge will be with his sister, Olimpia Hines. Patient declined to sign IMM at this time. DC IMM explained and understood but patient stated that he is too cold to sign at this time. CM will continue to follow and will assist as needed with dc plans/needs. Appended by Ozzy Chaudhry on 09/29/2020 18:41 CDT: DC IMM delivered, explained, signed by the patient, and placed in chart. Copy of form also left with the patient. CM will continue to follow and will assist as needed with dc plans/needs. DCP REVIEW SUMMARY ANTICIPATED D/C DATE: EXPECTED LOS : CASE STATUS: DCP Initiated INITIAL REVIEW: 09/27/2020 INITIAL REVIEWER: Ozzy Chaudhry FINAL DISCHARGE DISPOSITION: : FINAL REVIEWER: FINAL REVIEW DATE: DCP Focus Questions & Answers DCP Evaluation QUESTION: ANSWER Patient and/or caregiver agree upon recommended discharge plan? : Yes Patient's current cognitive status: : *Oriented to person, place, situation, time and present Patient's ability to cope with chronic illness : d. No chronic illness Patient gives permission to discuss discharge plans with: (name, relationship and number) : significant other, Zabrina Pereira, (PHONE NUMBER NOT GIVEN) Family / Caregiver's ability to cope with chronic illness: : a. Adequate (ability to meet patient's medical needs, ensures patient attends medical appts.) Does the patient have the ability to pay for or attain post discharge needs / services? : Yes Functional screen assessment: : Basic needs can adequately be met by self Family / Caregiver's ability to cope with chronic illness: : a. Adequate (ability to meet patient's medical needs, ensures patient attends medical appts.) Physical Status: : Independent with ADL's Equipment needed for post hospitalization: : None Is there a likelihood that the patient will require additional services to return to the preadmission environment? : Yes Living Arrangements: : Home with Spouse/Significant Other Patient with capacity for self-care or can be cared for in same environment as prior to hospitalization? : Yes Baseline cognitive status: : *Oriented to person, place, situation, time and present Physical environment modification needed / anticipated for discharge: : No Medication Management: : Patient states can read and understand medication labels Medication Management: : Patient states can afford medications Pharmacy name(s): : [facility] Does Patient have transportation to get home and to follow-up medical appointments when discharged from the hospital? : Yes Would patient like to participate in any Care Coordination programs (if applicable): : Not applicable Does the patient have electricity at home? : Yes Does the patient have running water in their house? : Yes Equipment in use: : Walker - Rolling Equipment in use: : Cane - Single Leg Mental health screen: : No mental health history DCP Re-evaluation QUESTION: ANSWER Would patient like to participate in any Care Coordination programs (if applicable): : Not applicable PATIENT: ARMANDO HINES ENCOUNTER: [id number] MEDICAL RECORD#: [id number] ADMISSION DATE: 09/27/2020 DISCHARGE DATE: 10/01/2020 ATTENDING MD: LILA RO : AGE: 59 MARITAL STATUS: U DC PLAN ID: [id number] FACILITY: [facility] PRINTED ON: 10/02/20 16:58 CT All edits/amendments must be made on the electronic document DICTATION DATE: 10/02/201657 SHEAR ASSEMBLER: ANTONIO 10/02/201657 RPT#: [id number] DC DATE:10/01/20 STATUS: DIS IN [facility] [address] [place] [address] END OF REPORT
== END 2020-10-01 18:55 | DRG 270 ==
LOC: D.CVICU 18:28
PROVIDERS: Family Medicine; Internal Medicine Hematology & Oncology; Radiology Diagnostic Radiology; Specialist; Thoracic Surgery (Cardiothoracic Vascular Surgery); ADMIT Emergency Medicine; ATTEND Emergency Medicine
PROC: 3E05317 Introduction of Other Thrombolytic into Peripheral Artery, Percutaneous Approach (ICD-10-PCS; 2020-09-27)
PROC: 047K3DZ Dilation of Right Femoral Artery with Intraluminal Device, Percutaneous Approach (ICD-10-PCS; principal; 2020-09-27 20:30)
PROC: 04CM3ZZ Extirpation of Matter from Right Popliteal Artery, Percutaneous Approach (ICD-10-PCS; 2020-10-01)
DX: I70.223 Atherosclerosis of native arteries of extremities with rest pain, bilateral legs (principal); I21.3 ST elevation (STEMI) myocardial infarction of unspecified site; I74.3 Embolism and thrombosis of arteries of the lower extremities; I10 Essential (primary) hypertension; D50.9 Iron deficiency anemia, unspecified; E87.5 Hyperkalemia; I48.91 Unspecified atrial fibrillation; K21.9 Gastro-esophageal reflux disease without esophagitis; J44.9 Chronic obstructive pulmonary disease, unspecified; N40.0 Benign prostatic hyperplasia without lower urinary tract symptoms; E78.5 Hyperlipidemia, unspecified; Z79.01 Long term (current) use of anticoagulants; I46.9 Cardiac arrest, cause unspecified